=== PATIENT | female | born 1950 | race Caucasian/White ===

== ENCOUNTER 2023-01-09 08:47 | Emergency (ER) | payer MEDICARE, BC ==
[2023-01-09 10:13] VITALS: BP 157/84; PULSE 109
== END 2023-01-09 10:10 | disposition home or self-care (01) ==
LOC: JP.ED 08:47
DX: I10 Essential (primary) hypertension (principal); E78.00 Pure hypercholesterolemia, unspecified; Z79.899 Other long term (current) drug therapy; Z79.82 Long term (current) use of aspirin; Z86.16 Personal history of COVID-19
CPT/HCPCS: 99283

== ENCOUNTER 2025-03-20 09:27 | Day surgery (SDC) | payer MEDICARE, BC ==
[2025-03-20] MEDS: Lactated Ringers 1,000 ML IV SCH (10:13)
[2025-03-20] MEDS ORDERED: Propofol 200 MG/20 ML SDV ONE (10:30)
[2025-03-20] MEDS ORDERED: fentaNYL 50 MCG/ML SDV ONE (10:33)
[2025-03-20 11:57] VITALS: BP 158/75; PULSE 85
== END 2025-03-20 12:04 | disposition home or self-care (01) ==
LOC: JP.SDS 09:27
PROVIDERS: ATTEND Surgery
DX: K22.89 Other specified disease of esophagus (principal); I10 Essential (primary) hypertension; E66.9 Obesity, unspecified; Z88.8 Allergy status to other drugs, medicaments and biological substances
CPT/HCPCS: 00731; 43239; 88305; J2704; J3010; J7120